=== PATIENT | male | born 1975 | race Hispanic/Latino ===

== ENCOUNTER 2022-07-01 23:57 | Emergency (ER) | payer OTHER ==
[2022-07-02 00:16] LABS: #Basophils 0.1 thou/uL (0.0-0.2); #Lymphocytes 1.1 thou/uL (1.20-3.40); #Monocytes 0.5 thou/uL (0.11-0.59); #Neutrophils 3.3 thou/uL (1.40-6.50); %Basophils 1.2 % (0.0-1.0); %Eosinophils 0.7 % (0.0-10.0); %Lymphocytes 22.4 % (21.0-51.0); %Monocytes 9.4 % (0.0-10.0); %Neutrophils 66.3 % (42.0-75.0); Hemoglobin 15.2 g/dL (14.0-18.0); Mean Corpuscular Hemoglobin 31.3 pg (27.0-31.0); Mean Corpuscular Volume 89.4 fL (78.0-98.0); Platelet Count 276 thou/uL (130-400); RBC Distribution Width 11.1 % (11.5-14.5); Red Blood Cell (RBC) Count 4.85 mill/uL (4.70-6.10)
[2022-07-02] MEDS ORDERED: Sodium Chloride 0.9% 1,000 ML ONE (00:44)
[2022-07-02] MEDS ORDERED: Morphine 4 MG/ML VIAL ONE (00:44)
[2022-07-02] MEDS ORDERED: Ondansetron PF 4 MG/2 ML Vial ONE (00:44)
[2022-07-02 00:47] LABS: ALT (SGPT) 25 U/L (8-55); AST (SGOT) 16 U/L (5-34); Albumin 4.5 g/dL (3.5-5.0); Alkaline Phosphatase 76 U/L (40-110); Anion Gap 15 mmol/L (10-20); BUN (Urea Nitrogen) 6 mg/dL (8.9-20.6); Bilirubin, Total 0.7 mg/dL (0.2-1.2); Calc. Creatinine Clearance 0 mL/min (70-130); Calcium 8.7 mg/dL (7.8-10.44); Carbon Dioxide 24 mmol/L (22-29); Chloride 82 mmol/L (98-107); Estimated GFR 113; Globulin 2.3 g/dL (2.4-3.5); Glucose 130 mg/dL (70-105); Lipase 5 U/L (8-78); Potassium 3.1 mmol/L (3.5-5.1); Protein, Total 6.8 g/dL (6.0-8.3)
[2022-07-02 00:49] LABS: Sodium 118 mmol/L (136-145)
[2022-07-02] MEDS ORDERED: Potassium Chloride 20 MEQ TAB ONE (01:07)
[2022-07-02 01:25] LABS: Magnesium 1.8 mg/dL (1.6-2.6)
[2022-07-02 01:43] LABS: SARS-CoV-2 NAA Rapid Test Not Detected (NotDetected)
[2022-07-02] MEDS ORDERED: carBAMazepine 200 MG TAB PO SCH (02:45)
[2022-07-02] MEDS ORDERED: Lisinopril 20 MG TAB PO SCH (02:45)
[2022-07-02] MEDS ORDERED: Gabapentin 400 MG CAP PO SCH (02:45)
[2022-07-02] MEDS ORDERED: Levothyroxine Sodium 50 MCG TAB PO SCH (02:45)
[2022-07-02] MEDS ORDERED: Baclofen 10 MG TAB PO SCH (02:45)
[2022-07-02 03:25] LABS: Anion Gap 16 mmol/L (10-20); BUN (Urea Nitrogen) 5 mg/dL (8.9-20.6); Calc. Creatinine Clearance 0 mL/min (70-130); Calcium 8.5 mg/dL (7.8-10.44); Carbon Dioxide 25 mmol/L (22-29); Chloride 83 mmol/L (98-107); Estimated GFR 113; Glucose 141 mg/dL (70-105); Potassium 3.8 mmol/L (3.5-5.1); Sodium 120 mmol/L (136-145)
[2022-07-02 03:27] LABS: Troponin I Less than 0.010 ng/mL (< 0.028)
[2022-07-02 06:25] LABS: Anion Gap 15 mmol/L (10-20); BUN (Urea Nitrogen) 5 mg/dL (8.9-20.6); Calc. Creatinine Clearance 0 mL/min (70-130); Calcium 8.5 mg/dL (7.8-10.44); Carbon Dioxide 25 mmol/L (22-29); Chloride 85 mmol/L (98-107); Estimated GFR 113; Glucose 110 mg/dL (70-105); Sodium 121 mmol/L (136-145)
[2022-07-02 06:34] LABS: Troponin I Less than 0.010 ng/mL (< 0.028)
[2022-07-02] MEDS ORDERED: Acetaminophen 325 MG TAB ONE (08:27)
== END 2022-07-02 08:40 | disposition short-term general hospital (02) ==
LOC: NAV ERS 23:57
DX: R07.2 Precordial pain (principal); E87.6 Hypokalemia; E87.1 Hypo-osmolality and hyponatremia; I10 Essential (primary) hypertension; E78.5 Hyperlipidemia, unspecified; E03.9 Hypothyroidism, unspecified; Z79.899 Other long term (current) drug therapy
CPT/HCPCS: 36415; 71045; 80053; 83690; 83735; 84484; 85025; 93005; 94760; 96361; 96374; 96375; J2270; J2405; J7050; U0002